=== PATIENT | female | born 1960 | race Caucasian/White ===

== ENCOUNTER 2020-04-23 23:52 | Emergency (ER) | payer OTHER ==
[~2020-04-23] VITALS: Ht 165.1 cm; Wt 62.6 kg
--- NOTE | 2020-04-24 00:02 | NUR ---
Patient bib RA 84 from home with seizure according to roommate. Patient is awake, oriented x3 upon arrival to ER. Placed on monitor and pulse ox. Patient states that she has not been taking her seizure medications for a while. Patient appears to be upset and stressed about having to live on the streets. Dr. Weems at bedside for MSE.
--- NOTE | 2020-04-24 00:05 | NUR ---
No injuries noted at this time, it appears that patient did not bite her tongue during seizure, no bleeding in mouth noted.
[2020-04-24] MEDS ORDERED: LORAZEPAM 2 MG/1 ML VIAL ONE (00:10)
[2020-04-24] MEDS ORDERED: LORAZEPAM 2 MG/1 ML VIAL IV ONE (00:15)
--- NOTE | 2020-04-24 00:17 | NUR ---
Patient is more awake now, ambulated to the bathroom without assistance and able to provide small amount of urine for urine sample. Patient is tearful and asking for us to call her boyfriend to pick her up. Explained to patient that lab results are pending at this time.
--- NOTE | 2020-04-24 00:23 | NUR ---
Patient pulled out her leads and removed pulse ox, she started walking out of the building, brought patient back in the building and placed in chair. Removed IV per MD order, catheter intact. Awaiting lab results at this time.
[2020-04-24 00:31] LABS: *AMPHETAMINE, URINE NEGATIVE (NEGATIVE); *BARBITURATE, URINE NEGATIVE (NEGATIVE); *COCCAINE, URINE NEGATIVE (NEGATIVE); *OPIATE, URINE NEGATIVE (NEGATIVE); *PHENCYCLIDINE SCREEN,URINE NEGATIVE (NEGATIVE)
[2020-04-24 00:31] LABS: CREATININE 0.8 mg/dL (0.6-1.3); POTASSIUM 4.2 mmol/L (3.5-5.1)
[2020-04-24 00:33] LABS: PHENYTOIN (DILANTIN) 9.9 ug/mL (10.0-20.0)
[2020-04-24 00:56] LABS: *CANNABINOID, URINE POSITIVE (NEGATIVE)
--- NOTE | 2020-04-24 01:10 | NUR ---
Patient discharged to home in stable condition. Written and verbal after care instructions given. Patient verbalizes understanding of instructions. Stressed follow up or return to ER for worsening s/s. Patient picked up by [facility].
[2020-04-24 01:11] VITALS: BP 131/90
== END 2020-04-24 01:11 | disposition home or self-care (01) ==
LOC: ER 23:56
DX: G40.909 Epilepsy, unspecified, not intractable, without status epilepticus (principal); Z72.89 Other problems related to lifestyle
CPT/HCPCS: 36415; 80048; 80185; 80307 ×2; 93005; 96374; 99284; J2060; A4663; G0480